=== PATIENT | male | born 1955 | race Caucasian/White ===

== ENCOUNTER → 2018-08-07 | Outpatient (REF) ==
--- NOTE | 2018-08-08 03:24 | REP ---
Clinical: Pain and disability. Technique: AP, lateral, open mouth views of the cervical spine. Findings: Lateral view best demonstrates focal advanced degenerative disc osteophyte complex at C5-6 and C6-7 with endplate sclerosis, osteophyte formation, and disc space narrowing. 3 mm grade 1 anterolisthesis at the C7-T1 level suggested. Remainder examination appears relatively normal for age. No acute fracture / compression injury. Impression: Advanced degenerative changes involving the lower cervical spine. Electronically Signed by Negrito Barillas MD 08/08/2018 03:16 A
--- NOTE | 2018-08-08 03:31 | REP ---
Clinical: Pain and disability. Technique: AP, lateral, coned-down views of the lumbosacral spine. Findings: Moderate/early advanced multilevel degenerative changes of the lumbar spine include endplate sclerosis, marginal osteophyte formation, and minimal disc space narrowing along with mild hypertrophic facet changes. Lateral view suggests chronic compression deformity at T12. Impression: 1. Moderate/early advanced multilevel lumbar spondylosis. 2. Suspected chronic compression deformity at T12. Electronically Signed by Negrito Barillas MD 08/08/2018 03:23 A
== END ==
LOC: M SMT 15:20
PROVIDERS: ATTEND Internal Medicine
DX: M50.33 Other cervical disc degeneration, cervicothoracic region (principal); M50.83 Other cervical disc disorders, cervicothoracic region

== ENCOUNTER → 2019-08-20 | Outpatient (REF) | payer OTHER ==
[2019-08-20 17:35] LABS: BLOOD UREA NITROGEN 17 MG/DL (7-18); GLOMERULAR FILTRATION RATE > 60.0 (>49)
== END ==
LOC: M LAB REF 16:44
PROVIDERS: ATTEND Internal Medicine Pulmonary Disease
DX: Z87.891 Personal history of nicotine dependence (principal)

== ENCOUNTER → 2019-08-28 | Outpatient (CLI) | payer OTHER ==
[~2019-08-28] MED LIST: D 1010004 PO; FAMO40TA3 PO; ISOVUE-370 76% 100ML VIAL (Q9967) As Ordered ONE; PANT40TA3 PO; VITA500C19 PO
--- NOTE | 2019-08-29 10:47 | REP ---
CT CHEST WITH IV CONTRAST: TECHNIQUE: Axial contrast enhanced images from the thoracic inlet to the upper abdomen using 100 mL Isovue 370 intravenous contrast material with multiplanar reformations. COMPARISON: PET/CT [facility] 08/08/[address] chest [facility] 05/02/2019. In the inferior aspect of the right lower lobe anterolaterally, there is an irregular, somewhat oval nodular opacity abutting the pleural surface. It measures approximately 14 x 9 mm. It may have slightly increased in size when compared to the study of 05/02/2019. On that exam by my measurements, it measured approximately 12 x 8 mm. In the right upper lobe, there are two subtle ill-defined tiny nodular opacities, which are stable both measuring 3 mm in diameter, one on image #35 and the other on image 42. These are likely not significant. There is stable biapical pleural and parenchymal scaring. There is mild diffuse interstitial fibrotic change bilaterally. No axillary adenopathy is seen. No hilar adenopathy is seen. There are small calcified lymph nodes in the right hilum and mediastinum. Several subcentimeter mediastinal lymph nodes are present. These have all decreased in size when compared to the prior study of 05/02/2019. Two adjacent pretracheal lymph nodes at the level of the aortic arch demonstrate a maximum short axis dimension of 7 mm. Another pretracheal lymph node just inferior to that have a short axis dimension of 7 mm. A left paratracheal lymph node inferiorly has a short axis dimension of 9 mm, previously 12 mm. Subcarinal lymph node has a short axis dimension of 10 mm, previously 15 mm. Thoracic aorta is normal in caliber with no aneurysm or dissection. The heart is normal in size. There is no pleural or pericardial effusion. The visualized upper abdominal structures appear unremarkable. The patient has had a prior cholecystectomy. There are two calcific densities to the right of the cholecystectomy clips, the larger of the two measures 7 mm. These may represent small stones in a cystic duct remnant. There are degenerative changes of the spine. There is an old compression deformity of T12 unchanged. IMPRESSION: Lateral inferior right lower lobe nodule may have slightly increased in size since 05/02/2019 exam, measuring 14 x 9 mm. This was mildly hypermetabolic on PET/CT of 08/08/2019. Consider tissue sampling. Multiple mediastinal lymph nodes have decreased in size since the 05/02/2019 CT as discussed in detail above. The largest is in the subcarinal region measuring 10 mm in short axis. The patient has had a prior cholecystectomy. There may be two small subcentimeter stones in a cystic duct remnant inferolateral to the cholecystectomy clips. Electronically Signed by Jose Patel MD 08/29/2019 12:00 P
== END ==
LOC: M RAD 15:48
PROVIDERS: ATTEND Internal Medicine Pulmonary Disease
DX: R91.8 Other nonspecific abnormal finding of lung field (principal)
CPT/HCPCS: 71260; Q9967

== ENCOUNTER 2019-09-02 06:19 | Day surgery (SDC) | payer OTHER ==
[~2019-09-02] VITALS: Ht 185.4 cm; Wt 81.6 kg
[~2019-09-02 06:19] MED LIST changes: -ISOVUE-370 76% 100ML VIAL (Q9967) As Ordered ONE; +LR 1,000 ML IV ONE
[2019-09-02] MEDS ORDERED: fentaNYL 100 MCG/2 ML INJECTION (J3010) As Ordered ONE (06:43)
[2019-09-02] MEDS ORDERED: MIDAZOLAM INJ 2 MG/2 ML VIAL (J2250) As Ordered ONE (06:43)
[2019-09-02] MEDS ORDERED: ROCURONIUM BROMIDE 50 MG/5 ML VIAL As Ordered ONE (06:45)
[2019-09-02] MEDS ORDERED: dexameTHASONE 4 MG/ML 1ML VIAL (J1100 PER 1MG) As Ordered ONE (06:45)
[2019-09-02] MEDS ORDERED: ONDANSETRON 4MG/2ML VIAL (J2405) As Ordered ONE (06:45)
[2019-09-02] MEDS ORDERED: propofoL 200 MG/20 ML VIAL As Ordered ONE ×2 (06:45→08:05)
[2019-09-02] MEDS ORDERED: LIDOCAINE 2% 100MG/5ML SDV (FOR ANES.) As Ordered ONE (06:45)
[2019-09-02] MEDS ORDERED: SUGAMMADEX SODIUM 500 MG/5 ML VIAL (BRIDION) As Ordered ONE (06:45)
[2019-09-02] MEDS ORDERED: THROMBIN SOLN 5,000 UNITS VIAL As Ordered ONE (07:20)
[2019-09-02] MEDS ORDERED: EPINEPHrine 1MG/10ML SYRINGE 1.5IN As Ordered ONE (07:20)
[2019-09-02] MEDS ORDERED: LIDOCAINE VISCOUS 2% SOLN 15ML UDC As Ordered ONE (07:20)
[2019-09-02] MEDS ORDERED: CETACAINE SPRAY 5GM As Ordered ONE (07:20)
[2019-09-02] MEDS ORDERED: LIDOCAINE 1% SDV 30ML VIAL As Ordered ONE (07:20)
[2019-09-02] MEDS ORDERED: GLYCOPYRROLATE INJ 0.2 MG/ML 2 ML VIAL As Ordered ONE (08:01)
--- NOTE | 2019-09-02 08:37 | RO ---
DATE OF PROCEDURE: 09/02/2019 PREOPERATIVE DIAGNOSIS: Mediastinal adenopathy, abnormal chest CT. POSTOPERATIVE DIAGNOSIS: Mediastinal adenopathy, abnormal chest CT. PROCEDURE: Bronchoscopy with endobronchial ultrasound guided fine needle aspiration (FNA) of the subcarinal node and right precarinal node SURGEON: Dr. Toni Antunez. ASSISTANTS: None. ANESTHESIA: General ESTIMATED BLOOD LOSS: No significant blood loss. SPECIMENS OBTAINED: 1. Subcarinal FNA 2. Minimal right precarinal node FNA. FINDINGS: Large subcarinal node measuring 1.5 cm and endobronchial ultrasound. P Precarinal node not enlarged just over 5 mm. DESCRIPTION OF PROCEDURE: After informed consent was reviewed with the patient in the preoperative area, he was brought back to outpatient procedure (OPP) #1 which is a negative pressure room. General anesthesia was initiated with an 8.5 endotracheal tube and the case was handed over to me. Time-out was performed with two patient identifiers identifying correct site, correct procedure. Cetacaine spray was then used to anesthetize the airway and provide lubrication for the scope. The 1T 180 bronchoscope was then inserted through the endotracheal tube into the airway. Tamie was fairly sharp right and left mainstem bronchus was normal. RV 1-10 was normal except for some minimal nodularity of the spur in the right upper lobe. No endobronchial lesions. On the left LB 1-10 was normal except for a large pit on the take off of the left lower lobe on the medial aspect of the airway. This was lavaged to ensure it was not an airway. There were no endobronchial lesions and therefore the bronchoscope was removed. Endobronchial ultrasound was inserted. Subcarinal area was viewed with enlarged subcarinal node, again measuring 1.5 cm. Fine needle aspiration was taken and enough sample for cytology and RPMI. I then moved to the right precarinal area. There was a minimal amount of soft tissue. Biopsy attempted, minimal tissue obtained. No significant nodule was seen and pictures were taken of the area. After adequate sampling, endobronchial ultrasound was removed. Airways were suctioned and the 1T 180 bronchoscope was the removed. There were no observed complications. Postprocedure chest x-ray is pending.
[2019-09-02] MEDS ORDERED: MEPERIDINE INJ 25 MG/ML VIAL (J2175) IV PRN (09:00)
[2019-09-02] MEDS ORDERED: LR 1,000 ML IV SCH (09:00)
[2019-09-02] MEDS ORDERED: METOCLOPRAMIDE INJ 10MG/2ML VIAL (J2765 PER 1) IV PRN (09:00)
[2019-09-02] MEDS ORDERED: fentaNYL 100 MCG/2 ML INJECTION (J3010) IV PRN (09:00)
[2019-09-02] MEDS ORDERED: PERCOCET 5MG/325MG TAB PO PRN (09:00)
[2019-09-02] MEDS ORDERED: ONDANSETRON 4MG/2ML VIAL (J2405) IV PRN (09:00)
--- NOTE | 2019-09-02 09:25 | REP ---
REASON: Postoperative. PRIORS: None. FINDINGS: The technique utilized in obtaining the radiograph has magnified the cardiac silhouette and accentuated the interstitial markings. The superior mediastinal structures are midline. The cardiac silhouette is unremarkable in size, shape, and position. The diaphragmatic surfaces of the lungs are regular, and the costophrenic angles are clear. The pulmonary gabriel are clear. The imaged osseous structures are intact. IMPRESSION: There is no acute cardiopulmonary disease. Electronically Signed by Otis Valencia DO 09/02/2019 11:51 A
[2019-09-02 10:30] VITALS: BP 147/91
== END 2019-09-02 10:45 | disposition home or self-care (01) ==
LOC: M SDC 06:19
PROVIDERS: ATTEND Internal Medicine Pulmonary Disease
DX: R59.0 Localized enlarged lymph nodes (principal); K21.9 Gastro-esophageal reflux disease without esophagitis; Z79.899 Other long term (current) drug therapy; Z91.030 Bee allergy status; Z88.8 Allergy status to other drugs, medicaments and biological substances
CPT/HCPCS: 31652; 71045; 88173; 88305; 88312; J1100; J2250; J2405; J3010

== ENCOUNTER → 2019-09-05 | Outpatient (REF) | payer OTHER ==
[~2019-09-05] MED LIST changes: -LR 1,000 ML IV ONE
[2019-09-05 13:57] LABS: PLATELET COUNT, AUTOMATED 147 10^3/uL (150-450)
[2019-09-05 14:15] LABS: INR 1.01
[2019-09-05 14:16] LABS: PARTIAL THROMBOPLASTIN TIME 32.3 SECONDS (25.0-38.4)
== END ==
LOC: M LAB REF 13:22
PROVIDERS: ATTEND Internal Medicine Pulmonary Disease
DX: R91.8 Other nonspecific abnormal finding of lung field (principal)

== ENCOUNTER 2019-09-27 10:13 | Inpatient (IN) | payer OTHER ==
[2019-09-27] MEDS: MOM 30ML SUSPENSION UDC PO SCH (09:00)
[~2019-09-27 10:13] MED LIST changes: +ALEV220T22 PO
[2019-09-27] MEDS ORDERED: KCL 20MEQ IN D5/NS 1000ML 1,000 ML IV SCH (11:18)
[2019-09-27] MEDS ORDERED: BISACODYL 10 MG SUPP PR PRN (11:30)
[2019-09-27] MEDS ORDERED: LEVALBUTEROL 1.25 MG/0.5 ML CONCENTRATE NEB NEB PRN (11:30)
[2019-09-27] MEDS ORDERED: NORCO, ANEXSIA 5/325MG TABLET (HYDROcodone/ACETAMINOPHEN) PO PRN (11:30)
[2019-09-27] MEDS ORDERED: ACETAMINOPHEN TAB 650MG DOSE (2X325MG) PO PRN (11:30)
[2019-09-27] MEDS ORDERED: ONDANSETRON 4MG/2ML VIAL IV PRN (11:30)
[2019-09-27] MEDS ORDERED: PERCOCET 5MG/325MG TAB PO PRN (11:30)
[2019-09-27 11:45] VITALS: BP 138/86
[2019-09-27] MEDS: KETOROLAC 30 MG/ML 1ML VIAL IV SCH ×3 (12:30→23:54)
[2019-09-27 12:49] VITALS: BP 140/83
--- NOTE | 2019-09-27 13:17 | RO ---
DATE OF PROCEDURE: 09/27/2019 PREOPERATIVE DIAGNOSIS: Right pneumothorax. POSTOPERATIVE DIAGNOSIS: Right pneumothorax. PROCEDURE: Insertion of right anterior chest tube under moderate sedation achieved with 4 mg of Versed. SURGEON: Dr. Hemanth Dueñas [employer] DRIVER: ANESTHESIA: DESCRIPTION OF PROCEDURE: Under satisfactory moderate sedation achieved with 4 mg of Versed, the patient was prepped and draped in the usual sterile fashion. Incision was made over the second rib in the mid axillary line. A tunnel was created in the chest and a #20 chest tube was placed without difficulty. The chest tube was secured to the chest wall with a #2 Tevdek suture and connected to the Pleur-evac. The patient tolerated the procedure well and a chest x-ray is pending.
[2019-09-27] MEDS ORDERED: LIDOCAINE W/EPINEPHRINE 1% 20ML VIAL SC ONE (14:30)
--- NOTE | 2019-09-27 14:30 | HPE ---
DATE OF ADMISSION: 09/27/2019 Mr. Devine is seen at the urgent request of radiology for a pneumothorax after a lung biopsy. HISTORY OF PRESENT ILLNESS: The patient is a 64-year-old white male, who underwent a biopsy of a right lung nodule today, where his lung came away from the chest wall and ended up with a 30% pneumothorax with pain and some shortness of breath. The nodule was not entered. His nodule was found incidentally after having a workup for gastroesophageal reflux disease. Had he not undergone the chest CT for his gastroesophageal reflux disease he would not of known that there was something growing in his chest. He does not complain of cough, and when he does have cough he brings up some scant white sputum. There is certainly no hemoptysis. There has been no fever, chills, or sweats. There has been no chest pain and no dysphagia. He has maintained his weight. He does get short of breath with climbing stairs however. He does not complain of paroxysmal nocturnal dyspnea nor he does have orthopnea. There has been no peripheral edema. His PET scan done at [facility] on 08/08/2019 showed minimal hypermetabolic uptake in the right lower lobe 1 cm nodule with an SUV of 2.1. He does have mediastinal nodes that look to be hypermetabolic with SUV around 3, 4, 5. PAST MEDICAL HISTORY: 1. Cholelithiasis. 2. Gastroesophageal reflux. 3. Hyperlipidemia. 4. Leukemia diagnosed in 2009 and treated with chemotherapy. The patient does not know the type of anemia. PAST SURGICAL HISTORY: A number of abdominal hernia repairs and a cholecystectomy in the remote past by a right upper abdominal oblique incision. MEDICATIONS AT HOME: - Pepcid 40 mg every day - pantoprazole 40 mg every day - naproxen 228 mg twice a day as needed pain - vitamin C 500 mg every day - cholecalciferol 25 mg every day HABITS: Smokes about one pack per day of [employer]. He has a [id number] history. Does not imbibe alcohol and no illicit drugs. TRAVEL HISTORY: No travel outside [facility]. 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 EXPOSURES: He has one dog, one cat at home. No birds. No exposure to tuberculosis. REVIEW OF SYSTEMS: Constitutional: Without fever, chills, or sweats or night sweats. Mouth: Wears dentures. Pulmonary: See history of present illness (HPI). Cardiac: See HPI. No prior history of myocardial infarctions or arrhythmias. Gastrointestinal (GI): Without nausea, vomiting, diarrhea, constipation, melena, or hematochezia. He does have esophageal reflux. Without hematemesis. Genitourinary (): Without dysuria, hematuria or history of renal stones. Neurologic: Without paresthesias, paralyses or prior seizures. Hematologic: Without prolonged bleeding times. Endocrine: Without diabetes. Without thyroid disease. Psychiatric: Without pathological anxieties, depressions or psychoses. PHYSICAL EXAMINATION: Vital Signs: Temperature is 98.4 with a heart rate of 55, in sinus rhythm, respiratory rate of 18 without the use of accessory muscles, who is 100% saturated on 2 liters nasal cannula and whose blood pressure is 138/86. Eyes: Pupils equal round and reactive to light. Extraocular movements intact. Sclerae nonicteric. Nose: Without deformity. Mouth: Shows his mucous membranes to be pink and moist. Lips and commissures are without lesions. There is no thrush. He identified edentulous. Neck: Supple. There is no jugular venous distention. No subcutaneous emphysema. Trachea is midline. There is no lymphadenopathy or thyromegaly. There is 2+ carotid upstrokes. Lungs: Show decreased breath sounds on the right with hyperresonant percussion note. Left lung shows normal vesicular sounds without wheezing, rhonchi or rales. Cardiac: Exam is without murmurs, clicks, gallops or rubs. I cannot feel his point of maximum impulse (PMI). S1 and S2 are normal. Abdomen: Soft. Nontender. Bowel sounds are positive. There is no hepatomegaly. No costovertebral angle (CVA) tenderness. Extremities: Show no pretibial edema. No calf tenderness. No differential swelling of the upper extremities. Skin: Warm, dry and perfused. Without cyanosis or mottling. Neurologic: Shows II-XII intact along with gross motor and gross sensation intact. Gait is not tested. Psychiatric: Shows him to be awake, alert, and oriented times three with appropriate mood and affect and conversational. LABORATORY DATA: His white count and chemistries are pending. His last BUN and creatinine on 08/20/2019 was 17 and 0.9. PT/INR are 13.0 and 1.01, respectively with a PTT of 32 seconds. His chest x-ray shows an approximate 30% pneumothorax. He has an enlarged aortic arch or perhaps even lymphadenopathy towards the left. Costophrenic angles are sharp. There is no subcutaneous emphysema. His trachea is midline. His CT with contrast done on 08/28/2019 shows a right lower lobe lesion, which measures 1.3 cm x 0.8 cm. It abuts the fissure but not intrafissural. He has emphysematous changes. There is also a small 3 mm node in the right upper lobe. I do not see pathologic mediastinal lymphadenopathy on the CT scan. Adrenals have a normal configuration and I see no liver lesions. IMPRESSION: 1. Acute pneumothorax after lung biopsy. 2. Gastroesophageal reflux disease. 3. History of leukemia. 4. Tobacco abuse. 5. Hyperlipidemia. PLAN AND DISCUSSION: I will immediately place a chest tube. We will reexpand his lung. As the lesion was not entered during biopsy, we will maintain his chest tube on suction and send him back down on Monday for repeat biopsy with protection of the chest tube. BRIDGER
[2019-09-27 14:32] LABS: BASO # 0.1 10^3/uL (0.0-0.2); EOS # 0.1 10^3/uL (0.0-0.5); EOS % 1.3 % (0.0-3.0); HEMATOCRIT 44.8 % (42.0-52.0); HEMOGLOBIN 15.4 g/dl (13.5-17.5); LYMPH # 2.4 10^3/uL (1.5-5.0); MEAN CORPUSCULAR HEMOGLOBIN 30.3 pg (27.0-33.0); MEAN CORPUSCULAR HGB CONC 34.4 g/dl (32.0-36.5); MONO # 0.2 10^3/uL (0.0-0.8); NEUTROPHILS # 3.2 10^3/uL (1.5-8.5); NEUTROPHILS % 53.4 % (36.0-66.0); PLATELET COUNT, AUTOMATED 134 10^3/uL (150-450); RED BLOOD COUNT 5.09 10^6/uL (4.30-6.10)
[2019-09-27 14:50] LABS: BLOOD UREA NITROGEN 21 MG/DL (7-18); CALCIUM LEVEL 8.8 MG/DL (8.8-10.2); CARBON DIOXIDE LEVEL 29 MEQ/L (21-32); CHLORIDE LEVEL 108 MEQ/L (98-107); CREATININE FOR GFR 0.87 MG/DL (0.70-1.30); GLOMERULAR FILTRATION RATE > 60.0 (>49); GLUCOSE, FASTING 96 MG/DL (70-100); POTASSIUM SERUM 4.1 MEQ/L (3.5-5.1); SODIUM LEVEL 141 MEQ/L (136-145)
--- NOTE | 2019-09-27 14:50 | REP ---
Portable chest x-ray: Single view. History: Pneumothorax. Comparison chest x-ray: September 27, 2019 at 11:20 a.m. Findings: Right apical chest tube remains in place. There is no discernible pneumothorax. Oxygen delivery tubing and monitoring electrodes are seen. There is minimal plate-like atelectasis in the right base. Lung gabriel are otherwise clear. Impression: Right chest tube in place. No pneumothorax visible. Mild plate-like atelectasis right base. Electronically Signed by Keegan Crespo MD 09/27/2019 02:41 P
[2019-09-27] MEDS: LEVALBUTEROL 1.25 MG/0.5 ML CONCENTRATE NEB NEB SCH ×2 (14:58→20:22)
[2019-09-27] MEDS: PERCOCET 5MG/325MG TAB PO PRN ×2 (16:10→23:54)
[2019-09-27 16:15] VITALS: BP 171/90
[2019-09-27] MEDS: PANTOPRAZOLE 40MG TAB (PROTONIX) PO SCH (18:16)
[2019-09-27] MEDS ORDERED: SLF 3 ML SYR IV PRN (18:30)
[2019-09-27 20:44] VITALS: BP 132/70
[2019-09-27] MEDS: DOCUSATE SODIUM 100 MG CAP PO SCH (20:48)
[2019-09-27] MEDS: HEPARIN SOD (PORCINE) 5000UNITS/ML VIAL (J1644 PER 1000UNITS) SC SCH (20:49)
[2019-09-27] MEDS: SLF 3 ML SYR IV SCH (20:49)
[2019-09-28] VITALS: BP 132/81
[2019-09-28] MEDS: LEVALBUTEROL 1.25 MG/0.5 ML CONCENTRATE NEB NEB SCH ×4 (00:55→20:22)
[2019-09-28 04:00] VITALS: BP 129/81
[2019-09-28 06:13] LABS: BASO % 0.8 % (0.0-1.0); EOS # 0.1 10^3/uL (0.0-0.5); EOS % 1.8 % (0.0-3.0); HEMATOCRIT 38.9 % (42.0-52.0); LYMPH # 2.3 10^3/uL (1.5-5.0); MEAN CORPUSCULAR HEMOGLOBIN 30.4 pg (27.0-33.0); MEAN CORPUSCULAR HGB CONC 34.2 g/dl (32.0-36.5); MONO # 0.2 10^3/uL (0.0-0.8); MONO % 4.6 % (0.0-5.0); NEUTROPHILS # 2.3 10^3/uL (1.5-8.5); NEUTROPHILS % 46.4 % (36.0-66.0); PLATELET COUNT, AUTOMATED 121 10^3/uL (150-450); RED BLOOD COUNT 4.37 10^6/uL (4.30-6.10)
[2019-09-28 06:15] LABS: HEMOGLOBIN 13.3 g/dl (13.5-17.5)
[2019-09-28] MEDS: SLF 3 ML SYR IV SCH ×3 (06:27→21:35)
[2019-09-28] MEDS: KETOROLAC 30 MG/ML 1ML VIAL IV SCH ×3 (06:28→17:27)
[2019-09-28 06:31] LABS: BLOOD UREA NITROGEN 24 MG/DL (7-18); CALCIUM LEVEL 8.4 MG/DL (8.8-10.2); CARBON DIOXIDE LEVEL 27 MEQ/L (21-32); CHLORIDE LEVEL 109 MEQ/L (98-107); CREATININE FOR GFR 0.89 MG/DL (0.70-1.30); GLOMERULAR FILTRATION RATE > 60.0 (>49); GLUCOSE, FASTING 98 MG/DL (70-100); POTASSIUM SERUM 3.5 MEQ/L (3.5-5.1); SODIUM LEVEL 141 MEQ/L (136-145)
[2019-09-28] MEDS: PERCOCET 5MG/325MG TAB PO PRN ×2 (07:29→21:35)
[2019-09-28 07:59] VITALS: BP 144/83
[2019-09-28] MEDS: DOCUSATE SODIUM 100 MG CAP PO SCH ×2 (08:26→21:34)
[2019-09-28] MEDS: PANTOPRAZOLE 40MG TAB (PROTONIX) PO SCH (08:26)
[2019-09-28] MEDS: HEPARIN SOD (PORCINE) 5000UNITS/ML VIAL (J1644 PER 1000UNITS) SC SCH ×2 (08:27→21:35)
[2019-09-28] MEDS: MOM 30ML SUSPENSION UDC PO SCH (08:27)
--- NOTE | 2019-09-28 11:18 | REP ---
REASON: Followup. COMPARISON: 09/27/2019 at 2:37 p.m. The right-sided thoracotomy tube is unchanged. The cardiomediastinal silhouette is stable. The heart is not enlarged. The lung gabriel are stable and clear. No acute patchy parenchymal opacities or pleural effusions have developed. There is no change in the osseous structures. IMPRESSION: No acute cardiopulmonary disease. Electronically Signed by Otis Valencia DO 09/28/2019 12:58 P
[2019-09-28] MEDS: NICOTINE 21MG/24HR 1 EA TRANSDERMAL TD SCH (11:33)
[2019-09-28 12:06] VITALS: BP 158/85
--- NOTE | 2019-09-28 13:08 | IPN ---
DATE OF SERVICE: 09/28/2019 This is Mr. Devine's first hospital day. His pain is being well controlled. Yesterday, he was bleeding from the chest tube insertion site with a skin bleeder, and I had to place a U stitch around the tube in order to stop the bleeding. There is no air leak today. His lung is fully expanded to the chest wall. His pain is being well controlled with Toradol and an occasional Percocet. His vital signs show a maximum temperature (Tmax) of 98.8 with a heart rate that ranges between 75 and 62 in a sinus rhythm, respiratory rate of 16-18 without the use of accessory muscles who is 98% saturated on room air, and whose blood pressure is ranging between 129/81 to 144/83. His intake and output over the past 24 hours has been recorded as 600 in and nothing out. He has put nothing out of the chest tube. There is no air leak, as noted above. Weight today is 81.5 kg. On physical examination, his lungs show equal breath sounds on either side. There are no wheezes, rhonchi, or rales. Percussion note is full to the diaphragm. Cardiac examination: Is without murmurs, clicks, gallops, or rubs. I cannot feel his point of maximum impulse (PMI). S1 and S2 are normal. Abdomen: Soft. Nontender. Bowel sounds are positive. There is no hepatomegaly. No costovertebral angle (CVA) tenderness. Extremities: Show no pretibial edema. No calf tenderness. No differential swelling of the upper extremities. Skin: Warm, dry, and perfused without cyanosis or mottling, including that of the nail beds or the knees. Neck is supple. There is no jugular venous distention, no subcutaneous emphysema. Trachea is midline. Mouth shows his mucous membranes to be pink and moist. Lips and commissures without lesions. There is no thrush. Eyes show his pupils to be equal and reactive. Extraocular motor intact. Sclerae anicteric. Neurologic: Shows II-XII intact, along with gross motor and gross sensation intact. Gait is not tested. Psychiatric: Shows him to be awake, alert, and oriented times three with appropriate mood and affect and conversational. LABORATORY DATA: His white count today is 5.0 with yesterday's white count of 6.0. Hemoglobin and hematocrit are 13.3 and 38.9, respectively, down from 15.4 and 44.8. This is probably secondary to hemodilution. Platelet count is 121 and stable, and differential shows 46% neutrophils, 46% lymphocytes, and 4% monocytes. There are no immature forms, no toxic granulations. His chemistries show essentially normal electrolytes with BUN and creatinine of 24 and 0.89 compared to 21 and 0.87 yesterday. Calcium is 8.4 with a glucose of 98. Laboratories were not back yesterday at the time of dictation and were reviewed last night. They are included for reference today. On his chest x-ray today shows his lung fully expanded to the chest wall. Chest tube is in good place. There is no subcutaneous emphysema. Costophrenic angles are sharp, and there are no infiltrates. He is asking for a nicotine patch, as he is an inveterate smoker, and I will certainly order that. IMPRESSION: 1. Acute pneumothorax after lung biopsy. 2. Gastroesophageal reflux disease. 3. History of leukemia. 4. Tobacco abuse. 5. Hyperlipidemia. 6. Right lower lobe mass. PLAN AND DISCUSSION: I will keep his chest tube on suction today. We will reschedule him for another biopsy under chest tube control on Monday. I will write him for a nicotine patch.
[2019-09-28 16:00] VITALS: BP 138/76
[2019-09-28 20:00] VITALS: BP 134/82
[2019-09-29] VITALS: BP 142/84
[2019-09-29] MEDS: LEVALBUTEROL 1.25 MG/0.5 ML CONCENTRATE NEB NEB SCH ×4 (01:34→20:07)
[2019-09-29 04:00] VITALS: BP 132/78
[2019-09-29 05:56] LABS: BASO % 0.6 % (0.0-1.0); EOS # 0.1 10^3/uL (0.0-0.5); EOS % 2.6 % (0.0-3.0); HEMATOCRIT 38.1 % (42.0-52.0); HEMOGLOBIN 12.7 g/dl (13.5-17.5); LYMPH # 2.3 10^3/uL (1.5-5.0); LYMPH % 45.7 % (24.0-44.0); MEAN CORPUSCULAR HEMOGLOBIN 29.9 pg (27.0-33.0); MEAN CORPUSCULAR HGB CONC 33.3 g/dl (32.0-36.5); MEAN CORPUSCULAR VOLUME 89.6 fl (80.0-96.0); MONO # 0.2 10^3/uL (0.0-0.8); MONO % 4.6 % (0.0-5.0); NEUTROPHILS # 2.3 10^3/uL (1.5-8.5); NEUTROPHILS % 46.1 % (36.0-66.0); PLATELET COUNT, AUTOMATED 112 10^3/uL (150-450); RED BLOOD COUNT 4.25 10^6/uL (4.30-6.10)
[2019-09-29] MEDS: KETOROLAC 30 MG/ML 1ML VIAL IV SCH ×4 (06:01→17:18)
[2019-09-29] MEDS: SLF 3 ML SYR IV SCH ×3 (06:01→21:30)
[2019-09-29 06:15] LABS: BLOOD UREA NITROGEN 24 MG/DL (7-18); CALCIUM LEVEL 8.5 MG/DL (8.8-10.2); CARBON DIOXIDE LEVEL 29 MEQ/L (21-32); CHLORIDE LEVEL 111 MEQ/L (98-107); CREATININE FOR GFR 0.82 MG/DL (0.70-1.30); GLOMERULAR FILTRATION RATE > 60.0 (>49); GLUCOSE, FASTING 98 MG/DL (70-100); POTASSIUM SERUM 3.9 MEQ/L (3.5-5.1); SODIUM LEVEL 143 MEQ/L (136-145)
[2019-09-29 08:00] VITALS: BP 148/94
[2019-09-29] MEDS: DOCUSATE SODIUM 100 MG CAP PO SCH ×2 (08:16→21:30)
[2019-09-29] MEDS: MOM 30ML SUSPENSION UDC PO SCH (08:16)
[2019-09-29] MEDS: PANTOPRAZOLE 40MG TAB (PROTONIX) PO SCH (08:16)
--- NOTE | 2019-09-29 09:32 | REP ---
REASON: Followup. COMPARISON: 09/28/2019 at 8:20 a.m. Right-sided thoracotomy tube, status quo. Cardiomediastinal silhouette unchanged. Lung gabriel stable and clear. No acute patchy parenchymal opacities or pleural effusions have developed. There is no change in the osseous structures. IMPRESSION: Stable chest. Electronically Signed by Otis Valencia DO 09/29/2019 10:37 A
[2019-09-29] MEDS: HEPARIN SOD (PORCINE) 5000UNITS/ML VIAL (J1644 PER 1000UNITS) SC SCH ×2 (10:21→21:30)
[2019-09-29] MEDS: NICOTINE 21MG/24HR 1 EA TRANSDERMAL TD SCH (10:21)
--- NOTE | 2019-09-29 11:16 | IPN ---
DATE: 09/29/2019 Mr. Devine has had an uneventful night. He had some shakes, which I suspect is secondary to nicotine withdrawal. He already has a nicotine patch on. He is quite an avid smoker. His vital signs show a maximum temperature (Tmax) 99.3 with a heart rate that ranges between 70 and 78 in a sinus rhythm, respiratory rate of 18-20 without the use of accessory muscles who is 97-98% saturated on room air, and whose blood pressure is ranging between 142/84 to 134/82. His intake and output for the past 24 hours has been recorded as 1320 in and nothing out. There is nothing out of the chest tube. He has had a number of voids. I suspect the intake and output (I's and O's) are not accurate as he is not collecting his urine. Weight today is 81.4 kg. He weighed 81.5 kg yesterday. On physical examination, his lungs show normal vesicular sounds on either side. They are equal on both sides. His percussion note is full to the diaphragm. Cardiac examination is without murmurs, clicks, gallops, or rubs. I cannot feel his point of maximum impulse (PMI). S1 and S2 are normal. Abdomen: Soft. Nontender. Bowel sounds are positive. There is no hepatomegaly. No costovertebral angle (CVA) tenderness. Extremities: Show no pretibial edema. No calf tenderness. No differential swelling of the upper extremities. Skin is warm, dry, and perfused without cyanosis or mottling, including that of the nail beds or the knees. Neck is supple. There is no jugular venous distention, no subcutaneous emphysema. Trachea is midline. Mouth shows his mucous membranes to be pink and moist. Lips and commissures without lesions. There is no thrush. Eyes show his pupils to be equal and reactive. Extraocular motor intact. Sclerae anicteric. Neurologic: Shows II-XII intact, along with gross motor and gross sensation intact. Gait is not tested. Psychiatric: Shows him to be awake, alert, and oriented times three with appropriate mood and affect and conversational. His white count today is 5.0 with hemoglobin and hematocrit and hematocrit of 12.7 and 38.1. Platelet count is 112. It is fairly stable, slightly down from 134 on admission and 121 yesterday. His chemistries show essentially normal electrolytes with BUN and creatinine of 24 and 0.82, a glucose of 98, and a calcium of 8.5. His chest x-ray shows his lung fully expanded to the chest wall. Costophrenic angles are sharp. There are no infiltrates. Chest tube is in good position. IMPRESSION: 1. Pneumothorax after lung biopsy. 2. Gastroesophageal reflux disease. 3. History of leukemia. 4. Tobacco abuse. 5. Hyperlipidemia. 6. Right lower lobe mass. PLAN AND DISCUSSION: Tomorrow, we will take him back down to x-ray, where another needle biopsy will be undertaken. At this time, I will keep the chest tube on -40 cm of suction. I spoke with Mrs. Devine on the phone today. She was quite harsh indicating that if biopsy tomorrow is not successful, "That's it." I appreciate her frustration. I did indicate to her that final medical decision making is up to her and not to her.
[2019-09-29 12:00] VITALS: BP 133/91
[2019-09-29 16:00] VITALS: BP 124/79
[2019-09-29 20:00] VITALS: BP 140/80
[2019-09-30] VITALS (7 sets, daily range): BP systolic 131–200; BP diastolic 81–110
[2019-09-30] MEDS: KETOROLAC 30 MG/ML 1ML VIAL IV SCH ×4 (00:24→16:44)
[2019-09-30] MEDS: LEVALBUTEROL 1.25 MG/0.5 ML CONCENTRATE NEB NEB SCH ×4 (02:16→19:53)
[2019-09-30] MEDS: SLF 3 ML SYR IV SCH ×3 (05:41→20:43)
[2019-09-30 06:10] LABS: BASO % 0.8 % (0.0-1.0); EOS # 0.1 10^3/uL (0.0-0.5); EOS % 2.7 % (0.0-3.0); HEMATOCRIT 38.1 % (42.0-52.0); HEMOGLOBIN 12.6 g/dl (13.5-17.5); LYMPH % 39.1 % (24.0-44.0); MEAN CORPUSCULAR HGB CONC 33.1 g/dl (32.0-36.5); MEAN CORPUSCULAR VOLUME 90.7 fl (80.0-96.0); MONO # 0.3 10^3/uL (0.0-0.8); MONO % 5.3 % (0.0-5.0); NEUTROPHILS # 2.6 10^3/uL (1.5-8.5); NEUTROPHILS % 51.5 % (36.0-66.0); PLATELET COUNT, AUTOMATED 115 10^3/uL (150-450); WHITE BLOOD COUNT 5.1 10^3/uL (4.0-10.0)
[2019-09-30 06:25] LABS: BLOOD UREA NITROGEN 20 MG/DL (7-18); CALCIUM LEVEL 8.3 MG/DL (8.8-10.2); CARBON DIOXIDE LEVEL 29 MEQ/L (21-32); CHLORIDE LEVEL 108 MEQ/L (98-107); CREATININE FOR GFR 0.84 MG/DL (0.70-1.30); GLOMERULAR FILTRATION RATE > 60.0 (>49); GLUCOSE, FASTING 90 MG/DL (70-100); POTASSIUM SERUM 4.3 MEQ/L (3.5-5.1); SODIUM LEVEL 141 MEQ/L (136-145)
--- NOTE | 2019-09-30 08:47 | REP ---
REASON: Followup COMPARISON: 09/29/2019 at 7:50 a.m. The right-sided thoracotomy tube is unchanged. The lung gabriel are unchanged. No acute patchy parenchymal opacities or pleural effusions have developed. There is no pneumothorax. The heart is not enlarged. The pleural angles remain sharp. There is no changed in the osseous structures. IMPRESSION: No change. Electronically Signed by Otis Valencia DO 09/30/2019 08:49 A
[2019-09-30] MEDS: HEPARIN SOD (PORCINE) 5000UNITS/ML VIAL (J1644 PER 1000UNITS) SC SCH ×2 (09:00→20:43)
[2019-09-30] MEDS: DOCUSATE SODIUM 100 MG CAP PO SCH ×2 (10:26→20:42)
[2019-09-30] MEDS: NICOTINE 21MG/24HR 1 EA TRANSDERMAL TD SCH (10:26)
[2019-09-30] MEDS: PANTOPRAZOLE 40MG TAB (PROTONIX) PO SCH (10:26)
[2019-09-30] MEDS: MOM 30ML SUSPENSION UDC PO SCH (10:26)
[2019-09-30] MEDS ORDERED: LIDOCAINE 1% MDV 20ML VIAL As Ordered ONE (11:00)
--- NOTE | 2019-09-30 12:36 | IPN ---
DATE: 09/30/2019 Mr. Devine has had an uneventful night. His pain is being well controlled at the chest tube insertion site and he is awaiting his repeat biopsy. His vital signs show a maximum temperature (Tmax) of 98.6 with a heart rate that ranges between 89 and 69 in a sinus rhythm, a respiratory rate of 18-20 without the use of accessory muscles who is 98% saturated on room air, and whose blood pressure is ranging between 131/83 to 143/85. His intake and output for the past 24 hours has been recorded as 1230 in and nothing out. He has had 4 voids and not collected. Weight today is 82.6 kg compared to 81.4 kg yesterday. On physical examination, his lungs show equal breath sounds on either side with normal vesicular sounds. Without wheezes, rhonchi or rales. Percussion note is full to the diaphragm. Cardiac examination is without murmurs, clicks, gallops, or rubs. I cannot feel his point of maximum impulse (PMI). S1 and S2 are normal. Abdomen: Soft. Nontender. Bowel sounds are positive. There is no hepatomegaly. No costovertebral angle (CVA) tenderness. Extremities: Show no pretibial edema. No calf tenderness. No differential swelling of the upper extremities. Skin is warm, dry, and perfused without cyanosis or mottling, including that of the nail beds or the knees. Neck is supple. There is no jugular venous distention. No subcutaneous emphysema. Trachea is midline. Mouth shows his mucous membranes to be pink and moist. Lips and commissures without lesions. There is no thrush. Eyes show his pupils to be equal and reactive. Extraocular motor intact. Sclerae anicteric. Neurologic: Shows II-XII intact, along with gross motor and gross sensation intact. Gait is not tested. Psychiatric: Shows him to be awake, alert, and oriented times three with appropriate mood and affect and conversational. His white count today is 5.1 with hemoglobin and hematocrit of 12.6 and 38.1 respectively. Platelet count is 115 and stable with a differential that shows 51% neutrophils, 39% lymphocytes, 5% monocytes. There are no immature forms and no toxic granulations. His chemistries show essentially normal electrolytes with BUN and creatinine of 20 and 0.84, with a glucose of 90, and a calcium of 8.3. His chest x-ray today shows his lung fully expanded to the chest wall. The costophrenic angles are sharp. There are no infiltrates. Chest tube is in good position. IMPRESSION: 1. Pneumothorax after lung biopsy right side. 2. Gastroesophageal reflux disease. 3. History of leukemia. 4. Tobacco abuse. 5. Hyperlipidemia. 6. Right lower lobe lung mass. PLAN AND DISCUSSION: Mr. Devine will go for a repeat biopsy today under chest tube suction and control. I will increase the suction to -40 during the biopsy. Hopefully, he will not be leaking tomorrow and I can remove the tubes and send him home the next day.
[2019-09-30] MEDS: PERCOCET 5MG/325MG TAB PO PRN ×2 (12:40→16:44)
--- NOTE | 2019-09-30 13:33 | REP ---
CHEST, SINGLE VIEW: Single view of the chest performed status post right lung biopsy. Right chest tube remains in place. I do not see a significant pneumothorax. Nodular opacity is seen laterally at the right lung base. Heart and mediastinum are unchanged. IMPRESSION: No significant pneumothorax status post right lung biopsy. Right chest tube in place. Electronically Signed by Jose Patel MD 09/30/2019 01:46 P
[2019-09-30] MEDS ORDERED: CALCIUM CARBONATE 500 MG CHEW U/D PO ONE (16:30)
--- NOTE | 2019-09-30 16:32 | REP ---
CT-GUIDED RIGHT LOWER LOBE LUNG BIOPSY The procedure was performed under the direct supervision of Dr. Paetl. The patient has a history of a 1.4 x 0.9 cm nodule in the inferior aspect of the right lower lobe anterolaterally seen on a previous CT scan dated 08/28/2019. A biopsy was attempted on this nodule on 09/27/2019. The patient, however, developed a right pneumothorax and the lesion fell away from the needle. A chest tube is in place and the patient is referred today for rebiopsy of the nodule. The risks and benefits of the procedure were explained to the patient and informed consent was obtained. The right lower lobe lung nodule was localized using CT guidance. The skin was prepped and draped in a sterile fashion. 1% lidocaine was used as a local anesthetic. Using CT guidance a 19/20 gauge coaxial needle biopsy system was inserted and advanced into the nodule. Five passes were made yielding three cores. Follow-up images demonstrate the patient did develop another right pneumothorax. As much air as possible was aspirated from the pleural space and follow-up images demonstrate improvement. A chest x-ray performed immediately after the procedure shows no significant pneumothorax. The patient tolerated the procedure well and there were no immediate complications. After the appropriate amount of monitored convalescence the patient was discharged from the department. Electronically Signed by GURJIT Rowe 09/30/2019 03:29 P Electronically Signed by Jose Patel MD 09/30/2019 04:23 P
[2019-10-01] VITALS: BP 131/81
[2019-10-01] MEDS: KETOROLAC 30 MG/ML 1ML VIAL IV SCH ×5 (01:06→23:59)
[2019-10-01] MEDS: LEVALBUTEROL 1.25 MG/0.5 ML CONCENTRATE NEB NEB SCH ×4 (01:24→19:36)
[2019-10-01 04:00] VITALS: BP 155/91
[2019-10-01 05:49] LABS: BASO % 0.7 % (0.0-1.0); EOS # 0.2 10^3/uL (0.0-0.5); EOS % 3.2 % (0.0-3.0); HEMATOCRIT 40.1 % (42.0-52.0); HEMOGLOBIN 13.6 g/dl (13.5-17.5); LYMPH # 2.1 10^3/uL (1.5-5.0); LYMPH % 36.7 % (24.0-44.0); MEAN CORPUSCULAR HEMOGLOBIN 30.7 pg (27.0-33.0); MEAN CORPUSCULAR HGB CONC 33.9 g/dl (32.0-36.5); MEAN CORPUSCULAR VOLUME 90.5 fl (80.0-96.0); MONO # 0.2 10^3/uL (0.0-0.8); MONO % 4.3 % (0.0-5.0); NEUTROPHILS # 3.1 10^3/uL (1.5-8.5); NEUTROPHILS % 54.2 % (36.0-66.0); PLATELET COUNT, AUTOMATED 133 10^3/uL (150-450); RED BLOOD COUNT 4.43 10^6/uL (4.30-6.10); WHITE BLOOD COUNT 5.6 10^3/uL (4.0-10.0)
[2019-10-01] MEDS: SLF 3 ML SYR IV SCH ×3 (06:01→20:54)
[2019-10-01 06:08] LABS: BLOOD UREA NITROGEN 23 MG/DL (7-18); CALCIUM LEVEL 8.8 MG/DL (8.8-10.2); CARBON DIOXIDE LEVEL 29 MEQ/L (21-32); CHLORIDE LEVEL 109 MEQ/L (98-107); CREATININE FOR GFR 1.02 MG/DL (0.70-1.30); GLOMERULAR FILTRATION RATE > 60.0 (>49); GLUCOSE, FASTING 89 MG/DL (70-100); POTASSIUM SERUM 4.5 MEQ/L (3.5-5.1); SODIUM LEVEL 142 MEQ/L (136-145)
[2019-10-01 08:00] VITALS: BP 152/92
[2019-10-01] MEDS: DOCUSATE SODIUM 100 MG CAP PO SCH ×3 (08:37→20:55)
[2019-10-01] MEDS: PANTOPRAZOLE 40MG TAB (PROTONIX) PO SCH (08:37)
[2019-10-01] MEDS: MOM 30ML SUSPENSION UDC PO SCH (08:37)
[2019-10-01] MEDS: HEPARIN SOD (PORCINE) 5000UNITS/ML VIAL (J1644 PER 1000UNITS) SC SCH ×2 (08:37→20:54)
[2019-10-01] MEDS: NICOTINE 21MG/24HR 1 EA TRANSDERMAL TD SCH (08:38)
--- NOTE | 2019-10-01 09:23 | REP ---
CHEST X-RAY: Two views. HISTORY: Pneumothorax. COMPARISON CHEST X-RAY: September 30, 2019 and September 29, 2019. FINDINGS: Right apical chest tube remains in place. No significant pneumothorax is seen. Pleural angles are sharp. No definite infiltrate is seen. There is an old wedge compression deformity at the thoracolumbar junction at what appears to be the T12 vertebral body. No other bony abnormality. IMPRESSION: Right apical chest tube remains in place. No significant pneumothorax. Electronically Signed by Keegan Crespo MD 10/01/2019 11:25 A
--- NOTE | 2019-10-01 09:29 | IPN ---
DATE: 10/01/2019 Mr. Devine had his lung rebiopsied yesterday. He had significant pain during and just after the procedure, but it is now resolved. His chest tube was placed on suction and he has no air leak and I have therefore taken it off suction. His vital signs show a maximum temperature (Tmax) of 98.4 with a heart rate that ranges between 61 and 87 in a sinus rhythm, a respiratory rate of 14-17 without the use of accessory muscles, who is 98% saturated on room air, and whose blood pressure is ranging between 142/87 to 155/91. His intake and output for the past 24 hours has been recorded as 108 in and 877 out for a positivity of 200 mL. He weighs 79.8 kg compared to 82.6 kg yesterday. On physical examination, his lungs show equal breath sounds on either side. Percussion note is full to the diaphragm. Cardiac examination is without murmurs, clicks, gallops, or rubs. I cannot feel his point of maximum impulse (PMI). S1 and S2 are normal. Abdomen: Soft. Nontender. Bowel sounds are positive. There is no hepatomegaly. No costovertebral angle (CVA) tenderness. Extremities: Show no pretibial edema. No calf tenderness. No differential swelling of the upper extremities. Skin is warm, dry, and perfused without cyanosis or mottling, including that of the nail beds and knees. Neck is supple. There is no jugular venous distention. No subcutaneous emphysema. Trachea is midline. Mouth shows his mucous membranes to be pink and moist. Lips and commissures without lesions. There is no thrush. Eyes show his pupils to be equal and reactive. Extraocular motor intact. Sclerae anicteric. Neurologic: Shows II-XII intact, along with gross motor and gross sensation intact. Gait is not tested. Psychiatric: Shows him to be awake, alert, and oriented times three with appropriate mood and affect and conversational. His white count today is 5.6 with hemoglobin and hematocrit of 13.6 and 40.1 respectively with a platelet count is 133 and stable. Differential shows 54% neutrophils, 36% lymphocytes, 4% monocytes. There are no immature forms and no toxic granulations. Electrolytes are normal today with BUN and creatinine of 23 and 1.02 and a glucose of 89 and a calcium of 8.8. His chest x-ray today shows the lung fully expanded to the chest wall. The costophrenic angles are sharp. Chest tube is in good position. IMPRESSION: 1. Pneumothorax right side after lung biopsy last week. 2. Gastroesophageal reflux disease. 3. History of leukemia. 4. Tobacco abuse. 5. Hyperlipidemia. 6. Right lower lobe lung mass. PLAN AND DISCUSSION: I will discontinue his chest tube suction today. If his x-ray shows his lung fully expanded to the chest wall tomorrow I will remove his chest tube and taken an x-ray 6 hours later and if the lung is still up send him home in the afternoon. We will await his pathology. Radiology reports to me that they got at least 3 good samples.
[2019-10-01 12:00] VITALS: BP 140/94
[2019-10-01 16:00] VITALS: BP 132/99
[2019-10-01 20:00] VITALS: BP 144/81
[2019-10-02] VITALS: BP 117/68
[2019-10-02] MEDS: LEVALBUTEROL 1.25 MG/0.5 ML CONCENTRATE NEB NEB SCH ×3 (01:42→13:59)
[2019-10-02 04:00] VITALS: BP 133/78
[2019-10-02] MEDS: SLF 3 ML SYR IV SCH ×2 (05:56→14:13)
[2019-10-02] MEDS: KETOROLAC 30 MG/ML 1ML VIAL IV SCH (05:56)
[2019-10-02 06:05] LABS: BASO % 0.7 % (0.0-1.0); EOS # 0.2 10^3/uL (0.0-0.5); EOS % 2.7 % (0.0-3.0); HEMATOCRIT 39.8 % (42.0-52.0); HEMOGLOBIN 13.4 g/dl (13.5-17.5); LYMPH # 1.9 10^3/uL (1.5-5.0); LYMPH % 33.7 % (24.0-44.0); MEAN CORPUSCULAR HEMOGLOBIN 30.4 pg (27.0-33.0); MEAN CORPUSCULAR HGB CONC 33.7 g/dl (32.0-36.5); MEAN CORPUSCULAR VOLUME 90.2 fl (80.0-96.0); MONO # 0.3 10^3/uL (0.0-0.8); MONO % 4.9 % (0.0-5.0); NEUTROPHILS # 3.2 10^3/uL (1.5-8.5); NEUTROPHILS % 57.5 % (36.0-66.0); PLATELET COUNT, AUTOMATED 132 10^3/uL (150-450); RED BLOOD COUNT 4.41 10^6/uL (4.30-6.10); WHITE BLOOD COUNT 5.5 10^3/uL (4.0-10.0)
[2019-10-02 06:08] LABS: BLOOD UREA NITROGEN 27 MG/DL (7-18); CALCIUM LEVEL 8.8 MG/DL (8.8-10.2); CARBON DIOXIDE LEVEL 29 MEQ/L (21-32); CHLORIDE LEVEL 107 MEQ/L (98-107); CREATININE FOR GFR 0.93 MG/DL (0.70-1.30); GLOMERULAR FILTRATION RATE > 60.0 (>49); GLUCOSE, FASTING 95 MG/DL (70-100); POTASSIUM SERUM 4.1 MEQ/L (3.5-5.1); SODIUM LEVEL 140 MEQ/L (136-145)
[2019-10-02] MEDS: DOCUSATE SODIUM 100 MG CAP PO SCH (07:36)
[2019-10-02] MEDS: MOM 30ML SUSPENSION UDC PO SCH (07:36)
[2019-10-02 07:37] VITALS: BP 140/96
[2019-10-02] MEDS: HEPARIN SOD (PORCINE) 5000UNITS/ML VIAL (J1644 PER 1000UNITS) SC SCH (08:16)
[2019-10-02] MEDS: PANTOPRAZOLE 40MG TAB (PROTONIX) PO SCH (08:16)
[2019-10-02] MEDS: NICOTINE 21MG/24HR 1 EA TRANSDERMAL TD SCH (08:17)
--- NOTE | 2019-10-02 08:34 | REP ---
CHEST X-RAY: Two views. HISTORY: Pneumothorax. COMPARISON CHEST X-RAY: October 01, 2019. FINDINGS: Right apical chest tube remains in place. There is no discernible pneumothorax. Lungs are well inflated and free of infiltrate. Pleural angles are sharp. Cardiomediastinal silhouette is unremarkable. There is wedge compression deformity at the thoracolumbar junction at what appears to be T12. It is unchanged. IMPRESSION: No acute abnormality. Right chest tube remains in place. Electronically Signed by Keegan Crespo MD 10/02/2019 10:55 A
[2019-10-02] MEDS: PERCOCET 5MG/325MG TAB PO PRN (09:35)
--- NOTE | 2019-10-02 10:53 | DSES ---
DATE OF ADMISSION: 09/27/2019 DATE OF DISCHARGE: 10/02/2019 DISCHARGE DIAGNOSES: 1. Pneumothorax right side after lung biopsy. 2. Gastroesophageal reflux disease (GERD). 3. History of leukemia. 4. Tobacco abuse. 5. Hyperlipidemia. 6. Right lower lobe mass, pathology pending. HOSPITAL COURSE: The patient is a 64-year-old white male, who underwent a needle biopsy on 09/27/2019 in x-ray. He sustained a pneumothorax and a chest tube was placed. The lung fell away the chest wall and the lesion was not injured after the chest tube was placed, and he was therefore taken back to x-ray where another biopsy was undertaken. Final pathology is pending as of this dictation. His chest was kept on suction the day of the biopsy and then removed from suction with no air leak and his lung remaining expanded to the chest wall. The chest tube was removed today. Chest x-ray will be taken 6 hours after removal and if the lung is expanded to the chest wall he will be discharged. He is being discharged on his home medications, which include, vitamin C 500 mg every day, vitamin D3 25 mcg every day, famotidine 40 mg at bedtime, naproxen (Aleve) 220 mg twice a day as needed pain, and pantoprazole 40 mg every day. He is to take Aleve or Tylenol for pain. He will remove his dressing in the morning and can take showers. He has an followup appointment with Dr. Antunez on 10/07/2019. At that followup appointment, will also obtain a chest x-ray. His discharge hemoglobin and hematocrit are 13.4 and 39.8 with a discharge white count of 5.5. His platelet count is 132. Discharge electrolytes are normal with a BUN and creatinine of 27 and 0.93. His chest x-ray shows his lung fully expanded to the chest wall, costophrenic angles are sharp and there is no pneumothorax. There are no infiltrates. edited: 10/03/2019 0948 MTDD
[2019-10-02 11:26] VITALS: BP 163/97
--- NOTE | 2019-10-02 15:32 | REP ---
CHEST, TWO VIEWS: Two views of the chest performed and compared to a prior exam of the same day. Right chest tube has been removed. I do not see evidence of a pneumothorax. The lungs are unchanged in appearance with no acute infiltrate. The heart and mediastinum are unchanged. IMPRESSION: No pneumothorax following removal of right chest tube. Electronically Signed by Jose Patel MD 10/02/2019 03:35 P
== END 2019-10-02 16:23 | disposition home or self-care (01) | DRG 143 ==
LOC: M PCU 11:47
PROVIDERS: ADMIT Thoracic Surgery (Cardiothoracic Vascular Surgery); ATTEND Thoracic Surgery (Cardiothoracic Vascular Surgery)
PROC: 0W9900Z Drainage of Right Pleural Cavity with Drainage Device, Open Approach (ICD-10-PCS; principal; 2019-09-27)
PROC: 0B9F3ZX Drainage of Right Lower Lung Lobe, Percutaneous Approach, Diagnostic (ICD-10-PCS; 2019-09-30)
DX: J95.811 Postprocedural pneumothorax (principal); F17.203 Nicotine dependence unspecified, with withdrawal; Y83.8 Other surgical procedures as the cause of abnormal reaction of the patient, or of later complication, without mention of misadventure at the time of the procedure; K21.9 Gastro-esophageal reflux disease without esophagitis; R91.8 Other nonspecific abnormal finding of lung field; E78.5 Hyperlipidemia, unspecified; Z85.6 Personal history of leukemia; Z92.21 Personal history of antineoplastic chemotherapy; Z90.49 Acquired absence of other specified parts of digestive tract; Z79.899 Other long term (current) drug therapy

== ENCOUNTER → 2020-08-06 | Outpatient (CLI) | payer OTHER ==
[~2020-08-06] MED LIST changes: +PANT40TA29 PO; -PANT40TA3 PO
--- NOTE | 2020-08-06 16:58 | REP ---
INDICATION: OTHER NON SPECIFIC ABNORMAL FINDING OF LUNG FIELD. COMPARISON: Outside study dated 05/02/2019, and prior study dated 01/09/2020. TECHNIQUE: Chest CT without IV contrast. FINDINGS: There is a 9 mm lung nodule anterior laterally in the right lower lobe on image 75. This measured 10 mm on 05/02/2019. 5 mm lung nodule laterally in the right upper lobe on image 39. This measured 5 mm on 05/02/2019. 3 mm lung nodule peripherally in the right upper lobe on image 49. This measured 3 mm on 05/02/2019. There are no other lung nodules or masses. There are no infiltrates or pleural effusions. There is no mediastinal lymph node enlargement. There is a calcified granuloma the precarinal mediastinum and a calcified granuloma in the right hilus. There are calcified granulomas in the aorta cul pulmonic window. There is no axillary lymph node enlargement. The study is insensitive for hilar lymph node enlargement in the absence of IV contrast. Thoracic aorta is unremarkable. Cardiac size is normal. There is calcified atheroma is of the coronary arteries. There is no pericardial effusion Upper abdomen: Is pneumobilia as previously. There is no adrenal mass. IMPRESSION: Right lung nodules as described, unchanged from 05/02/2019, therefore, likely benign. Pneumobilia, unchanged from 01/09/2020. <Electronically signed by Jose Britt > 08/06/20 [id number]
== END ==
LOC: M RAD 13:01
PROVIDERS: ATTEND Internal Medicine Pulmonary Disease
DX: R91.8 Other nonspecific abnormal finding of lung field (principal)

== ENCOUNTER → 2021-09-17 | Outpatient (CLI) | payer MEDICARE, OTHER | LOC: M RAD 10:25 | PROVIDERS: ATTEND Internal Medicine Pulmonary Disease | DX: R91.8 Other nonspecific abnormal finding of lung field (principal); Z87.891 Personal history of nicotine dependence ==

== ENCOUNTER → 2022-11-17 | Outpatient (CLI) | payer MEDICARE, OTHER | LOC: M RAD 09:22 | PROVIDERS: ATTEND Internal Medicine Pulmonary Disease | DX: Z87.891 Personal history of nicotine dependence (principal) ==

== ENCOUNTER → 2023-11-21 | Outpatient (CLI) | payer MEDICARE | LOC: M RAD 12:17 | PROVIDERS: ATTEND Physician Assistant | DX: Z12.2 Encounter for screening for malignant neoplasm of respiratory organs (principal); Z87.891 Personal history of nicotine dependence ==

== ENCOUNTER → 2025-01-07 | Outpatient (CLI) | payer MEDICARE ==
[~2025-01-07] MED LIST changes: -VITA500C19 PO; +VITA500C22 PO
== END ==
LOC: M RAD 10:49
PROVIDERS: ATTEND Internal Medicine Pulmonary Disease
DX: Z12.2 Encounter for screening for malignant neoplasm of respiratory organs (principal); Z87.891 Personal history of nicotine dependence; I25.10 Atherosclerotic heart disease of native coronary artery without angina pectoris; J98.11 Atelectasis; R91.8 Other nonspecific abnormal finding of lung field